=== PATIENT | male | born 1975 | race Caucasian/White ===

== ENCOUNTER 2022-06-02 09:06 | Inpatient (IN) ==
[2022-06-02 09:33] LABS: Bacteria,Urine Few per hpf (None-Few); Bilirubin,Urine Negative (Negative); Blood,Urine Negative (Negative); Clarity,Urine Clear (Clear); Color,Urine Light-Yellow (Yellow); Glucose,Urine (UA) Normal (Normal); Hyaline Casts,Urine Few per lpf (None Seen); Ketones,Urine Negative (Negative); Leukocyte Esterase,Urine Trace (Negative); Nitrite,Urine Negative (Negative); Protein,Urine 100 mg/dL (Neg-Trace); RBC,Urine 0-3 per hpf (0-3); Specific Gravity,Urine 1.008 (1.010-1.025); Urobilinogen,Urine Normal (Normal); WBC,Urine 0-3 per hpf (0-3)
[2022-06-02 09:35] LABS: Basophils # 0.2 K/mcL (0.0-0.2); Basophils % 0.9 %; Eosinophils # 0.5 K/mcL (0.0-0.6); Eosinophils % 1.9 %; Hematocrit 46.7 % (37.5-50.1); Hemoglobin 15.8 g/dL (12.9-16.9); Immature Granulocytes % 0.8 % (0-4); Lymphocytes # 3.6 K/mcL (0.6-4.6); Lymphocytes % 14.4 %; Mean Corpuscular HGB Conc 33.8 g/dL (31.6-35.5); Mean Corpuscular Volume 91.6 fL (83.0-100.0); Mean Platelet Volume 10.9 fL (9.4-12.4); Monocytes # 1.4 K/mcL (0.0-1.3); Monocytes % 5.5 %; Neutrophils # 18.9 K/mcL (1.6-8.9); Platelet Count 308 K/mcL (140-400); Red Cell Distribution Width 13.6 % (11.5-14.5); Segmented Neutrophils % 76.5 %; White Blood Count 24.6 K/mcL (4.3-11.1)
[2022-06-02 09:53] LABS: Acetaminophen < 10 mcg/mL (10-20); Alanine Aminotransferase 11 Units/L (7-52); Albumin 4.5 g/dL (3.5-5.7); Albumin/Globulin Ratio 1.4 (1.1-2.2); Alkaline Phosphatase 85 Units/L (34-104); Aspartate Amino Transferase 15 Units/L (13-39); BUN/Creatinine Ratio 13 (6-26); Bilirubin,Direct 0.1 mg/dL (0.0-0.2); Bilirubin,Indirect 0.3 mg/dL (0.0-1.0); Bilirubin,Total 0.4 mg/dL (0.3-1.0); Blood Urea Nitrogen 20 mg/dL (6-20); Carbon Dioxide 19 mEq/L (23-29); Chloride 100 mEq/L (98-107); Ethanol < 10 mg/dL (Less than 10); Globulin 3.3 g/dL (2.4-3.5); Glucose 298 mg/dL (70-105); Osmolality,Calculated 290 (280-300); Potassium 3.6 mEq/L (3.5-5.1); Salicylate < 2.5 mg/dL (15.0-30.0); Sodium 133 mEq/L (136-145); Total Protein 7.8 g/dL (6.4-8.9); eGFR For African Americans 57 (> 60); eGFR For Non-African Americans 47 (> 60)
[2022-06-02 10:38] LABS: Amphetamine Screen,Urine Negative ng/mL (Cutoff=1000)
[2022-06-02 10:39] LABS: Barbiturate Screen,Urine Negative ng/mL (Cutoff=200)
[2022-06-02 10:40] LABS: Benzodiazepines Screen,Urine Negative ng/mL (Cutoff=300); Cannabinoid Screen,Urine Negative ng/mL (Cutoff = 50); Cocaine Screen,Urine Negative ng/mL (Cutoff= 300); Opiate Screen,Urine Negative ng/mL (Cutoff=300); Phencyclidine Screen,Urine Negative ng/mL (Cutoff=25)
[2022-06-02] MEDS ORDERED: haloperidoL 5 MG TABLET PO PRN (13:53)
[2022-06-02] MEDS ORDERED: *HR* LORazepam 1 MG TABLET PO PRN (13:53)
[2022-06-02] MEDS ORDERED: *HR* LORazepam 2 MG/ML VIAL IM PRN (13:53)
[2022-06-02] MEDS ORDERED: Ibuprofen 400 MG TABLET PO PRN (13:53)
[2022-06-02] MEDS ORDERED: Mag Hydrox/Al Hydrox/Simeth 30 ML UDC PO PRN (13:53)
[2022-06-02] MEDS ORDERED: MOM Conc 10 ML UD.LIQ PO PRN (13:53)
[2022-06-02] MEDS ORDERED: traZODone 50 MG TABLET PO PRN (13:53)
[2022-06-02] MEDS ORDERED: hydrOXYzine pamoate 25 MG CAPSULE PO PRN (13:53)
[2022-06-02] MEDS ORDERED: Haloperidol Lactate 5 MG/ML VIAL IM PRN (13:53)
[2022-06-02 15:05] LABS: Influenza A PCR Negative (Negative); Influenza B PCR Negative (Negative); Resp. Syncytial Virus PCR Negative (Negative)
[2022-06-02 15:09] LABS: SARS-CoV-2 by PCR (In House) Negative (Negative)
[2022-06-02] MEDS ORDERED: Dextrose Gel 15 GM/37.5 ML TUBE PO PRN ×2 (16:12)
[2022-06-02] MEDS ORDERED: *HR* Dextrose 50 % in Water (Syg) 50 ML SYRINGE IVP PRN (16:12)
[2022-06-02] MEDS ORDERED: D5% in Water 1,000 ML IVC PRN (16:12)
[2022-06-02] MEDS: Gabapentin 400 MG CAPSULE PO SCH (16:34)
[2022-06-02] MEDS: 0.9 % Sodium Chloride 2,000 ML IV ONE ×2 (16:35→19:21)
[2022-06-02] MEDS: Insulin LISPRO 300 UNITS/3 ML VIAL SUBQ SCH (20:38)
[2022-06-02 21:11] LABS: VBG HCO3 24 mEq/L (21-27); VBG PCO2 45 mmHg (41-51); VBG PH 7.33 pH Units (7.32-7.42); VBG PO2 232 mmHg (25-50)
[2022-06-02 21:28] LABS: BUN/Creatinine Ratio 13 (6-26); Blood Urea Nitrogen 13 mg/dL (6-20); Calcium 6.7 mg/dL (8.6-10.3); Carbon Dioxide 19 mEq/L (23-29); Chloride 115 mEq/L (98-107); Glucose 189 mg/dL (70-105); Osmolality,Calculated 295 (280-300); Potassium 3.2 mEq/L (3.5-5.1); Sodium 140 mEq/L (136-145); eGFR For African Americans > 60 (> 60); eGFR For Non-African Americans > 60 (> 60)
[2022-06-02] MEDS ORDERED: Potassium Chloride Elixir 20 MEQ/15 ML UDC PO ONE (21:39)
[2022-06-02 23:28] LABS: Basophils # 0.2 K/mcL (0.0-0.2); Basophils % 1.4 %; Eosinophils # 0.5 K/mcL (0.0-0.6); Eosinophils % 4.1 %; Hematocrit 42.2 % (37.5-50.1); Immature Granulocytes % 0.7 % (0-4); Lymphocytes # 3.8 K/mcL (0.6-4.6); Lymphocytes % 31.9 %; Mean Corpuscular HGB Conc 33.6 g/dL (31.6-35.5); Mean Corpuscular Hemoglobin 30.8 pg (28.0-33.3); Mean Corpuscular Volume 91.5 fL (83.0-100.0); Mean Platelet Volume 11.1 fL (9.4-12.4); Monocytes # 0.8 K/mcL (0.0-1.3); Monocytes % 7.1 %; Neutrophils # 6.5 K/mcL (1.6-8.9); Platelet Count 272 K/mcL (140-400); Red Blood Count 4.61 M/mcL (4.19-5.50); Red Cell Distribution Width 13.9 % (11.5-14.5); Segmented Neutrophils % 54.8 %
[2022-06-02 23:34] LABS: Hemoglobin 14.2 g/dL (12.9-16.9); White Blood Count 11.8 K/mcL (4.3-11.1)
[2022-06-03] MEDS: *HR* Metformin 500 MG TABLET PO SCH ×3 (08:42→16:44)
[2022-06-03] MEDS ORDERED: Potassium Chloride Elixir 20 MEQ/15 ML UDC PO ONE (10:45)
[2022-06-03] MEDS: Gabapentin 400 MG CAPSULE PO SCH ×4 (12:25→21:53)
[2022-06-03] MEDS: Insulin LISPRO 300 UNITS/3 ML VIAL SUBQ SCH ×4 (12:25→22:32)
[2022-06-03] MEDS: Nicotine 2 MG GUM BC PRN (12:31)
[2022-06-04 07:48] LABS: Basophils # 0.1 K/mcL (0.0-0.2); Basophils % 1.4 %; Eosinophils # 0.7 K/mcL (0.0-0.6); Hematocrit 42.4 % (37.5-50.1); Hemoglobin 14.2 g/dL (12.9-16.9); Immature Granulocytes % 0.3 % (0-4); Lymphocytes # 3.9 K/mcL (0.6-4.6); Lymphocytes % 38.7 %; Mean Corpuscular HGB Conc 33.5 g/dL (31.6-35.5); Mean Corpuscular Hemoglobin 30.8 pg (28.0-33.3); Mean Platelet Volume 10.8 fL (9.4-12.4); Monocytes # 0.8 K/mcL (0.0-1.3); Monocytes % 7.6 %; Neutrophils # 4.6 K/mcL (1.6-8.9); Platelet Count 239 K/mcL (140-400); Red Blood Count 4.61 M/mcL (4.19-5.50); Red Cell Distribution Width 13.9 % (11.5-14.5); White Blood Count 10.1 K/mcL (4.3-11.1)
[2022-06-04 08:57] LABS: Alanine Aminotransferase 11 Units/L (7-52); Albumin 3.8 g/dL (3.5-5.7); Albumin/Globulin Ratio 1.4 (1.1-2.2); Alkaline Phosphatase 61 Units/L (34-104); Aspartate Amino Transferase 15 Units/L (13-39); BUN/Creatinine Ratio 9 (6-26); Bilirubin,Total 0.4 mg/dL (0.3-1.0); Blood Urea Nitrogen 11 mg/dL (6-20); Calcium 9.3 mg/dL (8.6-10.3); Carbon Dioxide 18 mEq/L (23-29); Chloride 108 mEq/L (98-107); Chol/HDL Ratio 5.2 (0-4.9); Cholesterol 194 mg/dL (< 200); Globulin 2.8 g/dL (2.4-3.5); Glucose 134 mg/dL (70-105); HDL Cholesterol 37 mg/dL (40-59); Osmolality,Calculated 283 (280-300); Potassium 4.2 mEq/L (3.5-5.1); Sodium 136 mEq/L (136-145); Total Protein 6.6 g/dL (6.4-8.9); eGFR For African Americans > 60 (> 60); eGFR For Non-African Americans > 60 (> 60)
[2022-06-04] MEDS: Insulin LISPRO 300 UNITS/3 ML VIAL SUBQ SCH ×4 (09:01→21:21)
[2022-06-04] MEDS: Gabapentin 400 MG CAPSULE PO SCH ×3 (09:02→21:10)
[2022-06-04] MEDS: *HR* Metformin 500 MG TABLET PO SCH ×2 (09:03→17:02)
[2022-06-04] MEDS: Nicotine 2 MG GUM BC PRN ×2 (09:05→18:26)
[2022-06-04 10:34] LABS: LDL Cholesterol,Calculated 125 mg/dL (< 100); Triglycerides 161 mg/dL (< 150)
[2022-06-04 13:15] LABS: Estimated Average Glucose 223 mg/dl; Hemoglobin A1C 9.4 %
[2022-06-05] MEDS: *HR* Metformin 500 MG TABLET PO SCH ×2 (08:34→17:19)
[2022-06-05] MEDS: Gabapentin 400 MG CAPSULE PO SCH ×3 (08:35→20:50)
[2022-06-05] MEDS: Insulin LISPRO 300 UNITS/3 ML VIAL SUBQ SCH ×4 (08:36→20:51)
[2022-06-05] MEDS: Nicotine 2 MG GUM BC PRN (08:39)
[2022-06-05] MEDS: traZODone 50 MG TABLET PO SCH (20:50)
[2022-06-06] MEDS: *HR* Metformin 500 MG TABLET PO SCH ×2 (08:13→16:48)
[2022-06-06] MEDS: Insulin LISPRO 300 UNITS/3 ML VIAL SUBQ SCH ×4 (08:13→21:58)
[2022-06-06] MEDS: Gabapentin 400 MG CAPSULE PO SCH ×3 (08:13→21:59)
[2022-06-06] MEDS: Nicotine 2 MG GUM BC PRN (09:00)
[2022-06-06] MEDS: traZODone 50 MG TABLET PO SCH (21:59)
[2022-06-07] MEDS: *HR* Metformin 500 MG TABLET PO SCH (08:57)
[2022-06-07] MEDS: Insulin LISPRO 300 UNITS/3 ML VIAL SUBQ SCH ×2 (09:00→11:56)
[2022-06-07] MEDS: Gabapentin 400 MG CAPSULE PO SCH ×2 (09:00→15:07)
[2022-06-07 09:12] VITALS: BP 122/82; PULSE 90; TEMP 98.3; O2SAT 97
[2022-06-07] MEDS: Nicotine 2 MG GUM BC PRN (15:07)
== END 2022-06-07 15:25 | disposition home or self-care (01) | DRG 753 ==
LOC: EMEROOARM 09:06 → 1ANU 15:46 → SUATTDRO 06-03 00:04 → 1ANU 06-03 00:29
PROVIDERS: ADMIT Psychiatry & Neurology Psychiatry; ATTEND Psychiatry & Neurology Forensic Psychiatry